=== PATIENT | male | born 1960 | race Caucasian/White ===

== ENCOUNTER 2024-05-09 09:10 | Outpatient (OUT) | payer OTHER, SELFPAY ==
--- NOTE | 2024-05-09 09:25 | US_ITS ---
The [address] [address] Patient Name: JODIE HONG MRN: [id number] date: 1960 Sex: M Assigned Patient Location: US Current Patient Location: Accession/Order Number: [id number] Exam Date: 05/09/2024 09:30 Report Date: 05/09/2024 11:45 At the request of: ALAN HOLLOWAY Procedure: US aorta EXAM: US aorta HISTORY: History Of Smoking. COMPARISON: CT abdomen pelvis 11/13/2019 TECHNIQUE: Ultrasound was performed of the abdominal aorta. FINDINGS: AORTA: Normal. No aneurysm, significant atherosclerosis, or visible occlusion. OTHER: Negative. US/US aorta IMPRESSION: 1. No abdominal aortic aneurysm. Electronically authenticated by: ASHLEIGH ROJO Date: 05/09/2024 11:45
== END 2024-05-09 09:11 | disposition home or self-care (01) ==
LOC: US 09:14
PROVIDERS: PCP Family Medicine; Visit Provider Family Medicine
DX: Z87.891 Personal history of nicotine dependence (principal)
CPT/HCPCS: 76706